=== PATIENT | male | born 1955 ===

== ENCOUNTER 2023-05-16 06:11 | Day surgery (SDC) | payer MEDICARE, OTHER, SELFPAY ==
[2023-05-16 11:35] VITALS: BMI 24.5
[2023-05-16 11:45] VITALS: BMI 24.5
[2023-05-16 11:50] VITALS: BP 127/81
[2023-05-16 12:03] LABS: Glucose - Point of Care 107 mg/dl (70-99)
[2023-05-16 14:10] LABS: Glucose - Point of Care 86 mg/dl (70-99)
[2023-05-16 15:15] VITALS: BP 124/81
[2023-05-16 15:30] VITALS: BP 142/81
== END 2023-05-16 15:50 | disposition home or self-care (01) ==
LOC: GI 06:11
PROVIDERS: ATTENDING PHYSICIAN Internal Medicine Gastroenterology
DX: C25.2 Malignant neoplasm of tail of pancreas (principal); K86.89 Other specified diseases of pancreas; K80.20 Calculus of gallbladder without cholecystitis without obstruction; K76.9 Liver disease, unspecified; R93.3 Abnormal findings on diagnostic imaging of other parts of digestive tract
CPT/HCPCS: 43238; 88172; 88173; 88305; 82962; 88341; 88342